=== PATIENT | male | born 1970 | race African-American/Black ===

== ENCOUNTER 2017-04-13 00:11 | Emergency (ER) | payer SELFPAY ==
[~2017-04-13] VITALS: Ht 167.6 cm; Wt 70.8 kg
[2017-04-13 01:13] VITALS: BP 142/78
[2017-04-13] MEDS ORDERED: ACETAMINOPHEN ES 500 MG TABLET ONE (01:22)
[2017-04-13] MEDS ORDERED: ACETAMINOPHEN 325 MG TABLET PO ONE (01:30)
== END 2017-04-13 01:30 | disposition home or self-care (01) ==
LOC: ER 00:11
DX: R51 Headache (principal)
CPT/HCPCS: 99282; A4606; Z7610

== ENCOUNTER 2017-04-13 03:50 | Emergency (ER) | payer SELFPAY ==
[~2017-04-13] VITALS: Ht 172.7 cm; Wt 77.1 kg
[2017-04-13 03:55] VITALS: BP 145/79
[2017-04-13] MEDS ORDERED: ALBUTEROL FS 2.5 MG/0.5 ML VIAL.NEB NEB ONE (04:00)
[2017-04-13] MEDS ORDERED: ALBUTEROL FS 2.5 MG/3 ML VIAL.NEB ONE (04:04)
== END 2017-04-13 05:40 | disposition home or self-care (01) ==
LOC: ER 03:51
DX: J45.909 Unspecified asthma, uncomplicated (principal); S13.4XXA Sprain of ligaments of cervical spine, initial encounter; Y08.89XA Assault by other specified means, initial encounter; Y93.89 Activity, other specified; Y92.89 Other specified places as the place of occurrence of the external cause; Y99.8 Other external cause status; Z59.0 Homelessness
CPT/HCPCS: 71010; 72040; 94640; 99284; A4606; Z7610